=== PATIENT | male | born 1995 | race Caucasian/White ===

== ENCOUNTER 2017-12-24 19:09 | Emergency (ER) | payer OTHER, SELFPAY ==
[2017-12-24 19:18] VITALS: BP 94/55; PULSE 64; RESP 18; TEMP 36.6; O2SAT 98; BMI 20.9
--- NOTE | 2017-12-24 19:24 | DI.RAD.S_ITS ---
PROCEDURE: XR ANKLE LT MIN 3V INDICATIONS: laceration rock climbing TECHNIQUE: 3 views of the ankle were acquired. COMPARISON: None. FINDINGS: Bones: No fractures or dislocations. Ankle mortise is normally aligned. No suspicious bony lesions. Soft tissues: No tibiotalar joint effusion. Achilles tendon appears normal. IMPRESSION: No fracture Dictated by: Luis A Hoffman M.D. on 12/24/2017 at 20:06 Approved by: Luis A Hoffman M.D. on 12/24/2017 at 20:07
[2017-12-24] MEDS: IBUPROFEN 400 MG TABLET PO (21:18)
[2017-12-24] MEDS: ACETAMINOPHEN 325 MG TABLET 975 MG PO (21:18)
[2017-12-24 22:55] VITALS: BP 107/59; PULSE 60; RESP 14
--- NOTE | 2017-12-24 23:48 | ED_ITS ---
HPI - Wound/Laceration General Chief Complaint: Wound/Laceration Stated Complaint: SLIPPED ON ROCKS AND CUT HIS LEFT ANKLE Time Seen by Provider: 12/24/17 23:21 Source: patient Mode of arrival: ambulatory Limitations: no limitations History of Present Illness HPI narrative: Patient is a 22-year-old male presents with left ankle laceration. He was hiking when he cut it on a rock. He has been able to walk on and numbness or tingling Related Data Home Medications Medication Instructions Recorded Confirmed No Known Home Medications 12/24/17 12/24/17 Allergies Allergy/AdvReac Type Severity Reaction Status Date / Time bee venom protein (honey bee) Allergy Unknown Verified 12/24/17 19:45 Review of Systems Review of Systems All systems reviewed & are unremarkable except as noted in HPI and below Constitutional Denies chills, Denies fever(s), Denies lethargy and Denies weakness Gastrointestinal Gastrointestinal: Denies nausea and Denies vomiting Musculoskeletal Denies back pain, Denies muscle weakness, Denies numbness and Denies tingling Integumentary/Breasts Reports system reviewed and no additional complaints, except as docu Neurologic Denies numbness, Denies tingling and Denies weakness Hematologic/Lymphatic Denies easy bleeding and Denies easy bruising [facility] Medical History Patient denies medical problems (Acute) Social History Smoking Status: Never smoker alcohol intake: never substance use type: marijuana Comment: Tetanus up-to-date Exam Initial Vital Signs Initial Vital Signs: Vital Signs Temperature 98 F 12/24/17 19:18 Pulse Rate 64 12/24/17 19:18 Respiratory Rate 18 12/24/17 19:18 Blood Pressure 94/55 L 12/24/17 19:18 Pulse Oximetry 98 12/24/17 19:18 Const General: cooperative and well developed Nutritional Appearance: well nourished Orientation: alert, awake, oriented x3 and not confused Resp Effort & Inspection: normal respiratory effort and able to speak in complete sentences Cardio Pulses: dorsalis pedis present and normal peripheral pulses Skin Other: 3 cm flap-like laceration medial ankle it just inferior to the malleoli Neuro General: alert, oriented x3, gait normal and no focal motor deficits Cranial Nerves: CN's II-XI intact bilaterally Speech: speech normal Motor: strength 5/5 throughout Sensory Exam: no sensory deficits noted Extrem Left lower extremity: ankle Details: normal ROM, warmth and laceration (Flap- like medial side inferior malleoli, no nerve or tendon damage); no tenderness, no swelling, edema, no pitting edema and no penetrating wound Procedures Joint Aspiration/Injection Laceration 1: Site: lower extremity Side (If applicable): left Size (cm): 3 Description: flap Depth: simple, single layer Local Anesthetic: lidocaine 1% Amount of anesthesia used (mL): 5 Pre-repair: wound explored and irrigated extensively Skin layer closed with: nylon Size (cm): 4-0 Number of sutures: 7 Technique: simple, interrupted Course Orders Ordered: Discontinued Medications Acetaminophen (Tylenol) 975 mg PO NOW ONE Stop: 12/24/17 21:18 Last Admin: 12/24/17 21:18 Dose: 975 mg Ibuprofen (Advil) 400 mg PO NOW ONE Stop: 12/24/17 21:18 Last Admin: 12/24/17 21:18 Dose: 400 mg Vital Signs - 8 hr 12/24/17 22:55 Pulse Rate 60 Respiratory Rate 14 Blood Pressure [Left Arm] 107/59 L MDM - Wound/Laceration Imaging Data Left ankle: Radiologist's impression: PROCEDURE: XR ANKLE LT MIN 3V INDICATIONS: laceration rock climbing TECHNIQUE: 3 views of the ankle were acquired. COMPARISON: None. FINDINGS: Bones: No fractures or dislocations. Ankle mortise is normally aligned. No suspicious bony lesions. Soft tissues: No tibiotalar joint effusion. Achilles tendon appears normal. IMPRESSION: No fracture Discharge Plan Departure Patient Disposition: Home, Self-Care Clinical Impression: Laceration Discharge Date/Time: 12/24/17 23:52 Interventions: ED Discharge Assessment Last Done: 12/24/17 23:52 Instructions: DI for Laceration Repair -- Simple Activity Restrictions/Additional Instructions: 1. Have your suture removed in 5-7 days, you may go to walk-in clinic, return to the ER or call your primary care physician. 2. No soaking in water including dishes, bathtubs, Lakes, swimming pools etc 3. Signs of infection include, but not limited to, increased redness, increased swelling, increased pain, fever and purulent drainage, if the symptoms should arise, you may need an antibiotic and you should have a reevaluation either by your primary care provider or by the emergency department. Prescriptions: No Action No Known Home Medications RF: 0
== END 2017-12-24 23:52 | disposition home or self-care (01) ==
PROVIDERS: Emergency Provider Emergency Medicine
DX: S91.012A Laceration without foreign body, left ankle, initial encounter (principal); W19.XXXA Unspecified fall, initial encounter
CPT/HCPCS: 12002; 12042; 73610; 99283